=== PATIENT | female | born 1985 ===

== ENCOUNTER 2020-01-28 04:04 | Observation (INO) ==
[2020-01-28] MEDS ORDERED: ONDANSETRON 4 MG/2 ML VIAL IV ONE (04:20)
[2020-01-28] MEDS ORDERED: SODIUM CHLORIDE 0.9% 1,000 ML IV STA (04:20)
[2020-01-28] MEDS ORDERED: MORPHINE 4 MG/1 ML VIAL IV STA (04:20)
[2020-01-28 05:14] LABS: Apearance,Urine CLEAR (Clear); Bilirubin,Urine Negative (Negative); Blood, Urine Negative (Negative); Glucose,Urine (UA) Negative (Negative); Ketones,Urine 20 mg/dL (Negative); Mucus,Urine Occasional /LPF (Occasional); Nitrite,Urine Negative (Negative); Protein,Urine Negative; RBC,Urine 6 /HPF (0-4); Squamous Epithelial Cell,Urine Occasional /HPF (0-10); Urine Color Yellow (Yellow); Urine Specific Gravity 1.018 (1.001-1.035); Urine Urobilinogen < 2.0 EU/DL (0.2-1.0); WBC,Urine 4 /HPF (0-6)
[2020-01-28 05:44] LABS: Calcium 8.6 MG/DL (8.5-10.1); Osmolality,Calculated 274.7 MOS/KG (273-304)
[2020-01-28 05:46] LABS: Basophils % 0.3 % (0.0-0.8); Eosinophils % 0.2 % (0.00-10.9); Hematocrit 34.9 VOL% (35.7-47.0); Hemoglobin 10.3 GM/DL (12.0-16.0); Immature Granulocytes % 0.3 %; Immature Granulocytes Absolute 0.04 #; Lymphocytes # 2.4 10*3/uL (1.4-4.0); Lymphocytes % 19.4 % (21.3-54.2); Mean Corpuscular HGB Conc 29.5 GM/DL (32-36); Mean Corpuscular Volume 72.7 FL (87-102); Mean Platelet Volume 9.6 FL (9.6-12.0); Monocytes % 6.9 % (1.7-12.7); Neutrophils % 72.9 % (38.7-73.9); Platelet Count 324 T/CUMM (130-400); Red Cell Distribution Width 17.5 % (9.3-17.3); White Blood Count 12.4 T/CUMM (4-12)
[2020-01-28] MEDS ORDERED: SODIUM CHLORIDE 0.9% 1,000 ML IV SCH (07:30)
[2020-01-28] MEDS ORDERED: ONDANSETRON 4 MG/2 ML VIAL IV PRN (07:30)
[2020-01-28] MEDS ORDERED: MORPHINE 4 MG/1 ML VIAL IV PRN (07:30)
[2020-01-28] MEDS ORDERED: TAMSULOSIN 0.4 MG CAPSULE PO SCH (09:00)
[2020-01-28] MEDS ORDERED: LABETALOL 200 MG TABLET PO SCH (09:00)
[2020-01-28] MEDS ORDERED: ceFAZolin 1,000 MG VIAL ONE (10:27)
[2020-01-28] MEDS ORDERED: SUGAMMADEX 200 MG/2 ML VIAL IV ONE (10:41)
[2020-01-28] MEDS ORDERED: SEVOFLURANE 1 UNIT/15 MINUTE INH ONE (11:00)
[2020-01-28] MEDS ORDERED: LIDOCAINE 2% 5 ML VIAL ONE (11:00)
[2020-01-28] MEDS ORDERED: propofoL 200 MG/20 ML VIAL IV ONE (11:00)
[2020-01-28] MEDS ORDERED: ONDANSETRON 4 MG/2 ML VIAL ONE (11:01)
[2020-01-28] MEDS ORDERED: NEOSTIGMINE 10 MG/10 ML VIAL ONE (11:01)
[2020-01-28] MEDS ORDERED: fentaNYL 100 MCG/2 ML VIAL ONE (11:01)
[2020-01-28] MEDS ORDERED: SUCCINYLCHOLINE 200 MG/10 ML VIAL ONE (11:01)
[2020-01-28] MEDS ORDERED: LABETALOL 100 MG/20 ML VIAL IV ONE (11:01)
[2020-01-28] MEDS ORDERED: GLYCOPYRROLATE 0.4 MG/2 ML VIAL ONE (11:01)
[2020-01-28] MEDS ORDERED: ROCURONIUM 100 MG/10 ML VIAL IV ONE (11:01)
[2020-01-28] MEDS ORDERED: PHENYLEPHRINE 1 MG/10 ML SYRINGE IV ONE (11:01)
[2020-01-28 14:25] VITALS: BP 128/69
[2020-01-28] MEDS ORDERED: LABETALOL 100 MG PO SCH (21:00)
== END 2020-01-28 16:55 | disposition home or self-care (01) ==
LOC: EDUNIT# → N.ED 04:04 → N.EDINP 04:04 → N.OB 05:59
PROVIDERS: ADMIT Obstetrics & Gynecology; ATTEND Obstetrics & Gynecology